=== PATIENT | female | born 1970 | race Caucasian/White ===

== ENCOUNTER → 2016-10-28 | Outpatient (CLI) | payer OTHER | END | disposition home or self-care (01) | LOC: CFH 11:23 | PROVIDERS: ATTEND Obstetrics & Gynecology | DX: Z12.31 Encounter for screening mammogram for malignant neoplasm of breast (principal) | CPT/HCPCS: G0202 ==

== ENCOUNTER → 2017-11-03 | Outpatient (CLI) | payer OTHER | END | disposition home or self-care (01) | LOC: CFH 11:11 | PROVIDERS: ATTEND Obstetrics & Gynecology | DX: Z12.31 Encounter for screening mammogram for malignant neoplasm of breast (principal) | CPT/HCPCS: 77063; 77067 ==

== ENCOUNTER → 2017-12-30 | Outpatient (CLI) | payer OTHER ==
[~2017-12-30] MED LIST: DOCU-131 PO; DOXY25TA18 PO; Juice plus PO
[2017-12-30 11:45] LABS: BASOPHILS # (AUTO) 0.05 x10^3/uL (0-0.1); BASOPHILS % (AUTO) 1 % (0-1); EOSINOPHILS # (AUTO) 0.06 x10^3/uL (0-0.4); EOSINOPHILS % (AUTO) 1 % (1-7); LYMPHOCYTES # (AUTO) 2.01 x10^3/uL (1-3.4); LYMPHOCYTES % (AUTO) 22 % (22-44); MD NO; MEAN CORPUSCULAR HEMOGLOBIN 30.6 pg (27.0-34.8); MEAN CORPUSCULAR HGB CONC 34.4 g/dL (32.4-35.8); MEAN PLATELET VOLUME 8.2 fL (7.4-10.4); MONOCYTES # (AUTO) 0.57 x10^3/uL (0.2-0.8); MONOCYTES % (AUTO) 6 % (2-9); NEUTROPHILS # (AUTO) 6.32 x10^3/uL (1.8-6.8); NEUTROPHILS % (AUTO) 70 % (42-75); PLATELET COUNT 318 x10^3/uL (130-400); RED BLOOD COUNT 4.49 x10^6/uL (3.82-5.3); RED CELL DISTRIBUTION WIDTH 14.2 % (9.6-15.2)
[2017-12-30 12:03] LABS: CULTURE INDICATED? NO; HCG UR SG 1.025 (1.003-1.030); MICROSCOPIC NOT IND
== END | disposition home or self-care (01) ==
LOC: STAR 10:43
PROVIDERS: ATTEND Obstetrics & Gynecology
DX: Z01.818 Encounter for other preprocedural examination (principal); D25.9 Leiomyoma of uterus, unspecified; N92.0 Excessive and frequent menstruation with regular cycle
CPT/HCPCS: 36415; 81003; 81025; 85025

== ENCOUNTER 2018-01-06 06:45 | Day surgery (SDC) | payer OTHER ==
[~2018-01-06] VITALS: Ht 160 cm; Wt 84.0 kg
[2018-01-06] MEDS ORDERED: LACTATED RINGERS 1,000 ML IV SCH (07:11)
[2018-01-06 07:19] LABS: HCG UR SG 1.021 (1.003-1.030)
[2018-01-06] MEDS ORDERED: GABAPENTIN 300 MG CAPSULE PO ONE (07:30)
[2018-01-06] MEDS ORDERED: ACETAMINOPHEN 500 MG TABLET PO ONE (07:30)
[2018-01-06 07:34] VITALS: BP 101/69
[2018-01-06] MEDS ORDERED: MIDAZOLAM 1 MG/ML, 2ML ONE (07:45)
[2018-01-06] MEDS ORDERED: FENTANYL PF 100 MCG/2ML ONE ×2 (07:45→09:36)
[2018-01-06] MEDS ORDERED: SILVER NITRATE STICK TP ONE (08:29)
[2018-01-06] MEDS ORDERED: BUPIVACAINE/PF-EPI 0.5% 1:200K ONE (08:29)
[2018-01-06] MEDS ORDERED: OXYcodone 5 MG/5 ML ORAL.SOL UDC PO PRN (08:30)
[2018-01-06] MEDS ORDERED: ONDANSETRON 2MG/ML, 2ML IV PRN (08:30)
[2018-01-06] MEDS ORDERED: hydrALAzine 20 MG/ML, 1ML IV PRN (08:30)
[2018-01-06] MEDS ORDERED: HYDROmorphone 1 MG/ML, 1ML IV PRN (08:30)
[2018-01-06] MEDS ORDERED: PROMETHAZINE 25 MG/ML, 1ML IV PRN (08:30)
[2018-01-06] MEDS ORDERED: LABETALOL 5MG/ML, 20ML IV PRN (08:30)
[2018-01-06] MEDS ORDERED: MEPERIDINE/PF 25MG/0.5ML IVPush PRN (08:30)
[2018-01-06] MEDS ORDERED: PROPOFOL 10 MG/ML, 20ML ONE (08:32)
[2018-01-06] MEDS ORDERED: ONDANSETRON 2MG/ML, 2ML ONE ×2 (08:33→12:38)
[2018-01-06] MEDS ORDERED: DEXAMETHASONE 4 MG/ML, 1ML ONE (08:33)
[2018-01-06] MEDS ORDERED: ROCURONIUM 10MG/ML,5ML ONE (08:37)
[2018-01-06] MEDS ORDERED: OXYcodone 5 MG/5 ML ORAL.SOL UDC ONE (09:36)
[2018-01-06] MEDS: FENTANYL PF 100 MCG/2ML IV PRN ×2 (09:41→09:57)
[2018-01-06] MEDS ORDERED: IBUPROFEN 600 MG TABLET ONE (12:09)
[2018-01-06] MEDS ORDERED: IBUPROFEN 200 MG TABLET PO ONE (12:30)
== END 2018-01-06 13:57 | disposition home or self-care (01) ==
LOC: OUT 06:45
PROVIDERS: ATTEND Obstetrics & Gynecology
DX: N92.0 Excessive and frequent menstruation with regular cycle (principal); N94.6 Dysmenorrhea, unspecified; D25.9 Leiomyoma of uterus, unspecified; G43.909 Migraine, unspecified, not intractable, without status migrainosus; Z98.890 Other specified postprocedural states; Z90.49 Acquired absence of other specified parts of digestive tract; Z72.89 Other problems related to lifestyle
CPT/HCPCS: 58563; 81025; J1100; J2250; J2405; J2704; J3010; J7120

== ENCOUNTER → 2020-02-27 | Outpatient (CLI) | payer OTHER | END | disposition home or self-care (01) | LOC: CFH 12:02 | PROVIDERS: ATTEND Obstetrics & Gynecology | DX: Z12.31 Encounter for screening mammogram for malignant neoplasm of breast (principal) | CPT/HCPCS: 77063; 77067 ==

== ENCOUNTER 2020-06-30 09:49 | Inpatient (IN) | payer OTHER ==
[~2020-06-30] VITALS: Ht 162.6 cm; Wt 87.0 kg
[2020-06-30] MEDS ORDERED: ONDANSETRON 2MG/ML, 2ML ONE (10:18)
[2020-06-30 10:25] LABS: BASOPHILS % (AUTO) 0 % (0-1); EOSINOPHILS % (AUTO) 0 % (1-7); LYMPHOCYTES % (AUTO) 11 % (22-44); MEAN CORPUSCULAR HEMOGLOBIN 30.6 pg (27.0-34.8); MEAN CORPUSCULAR HGB CONC 34.4 g/dL (32.4-35.8); MEAN PLATELET VOLUME 7.4 fL (7.4-10.4); MONOCYTES % (AUTO) 6 % (2-9); NEUTROPHILS % (AUTO) 82 % (42-75); PLATELET COUNT 284 x10^3/uL (130-400); RED BLOOD COUNT 4.48 x10^6/uL (3.82-5.3); RED CELL DISTRIBUTION WIDTH 13.5 % (9.6-15.2)
[2020-06-30] MEDS ORDERED: SODIUM CHLORIDE FLUSH 10ML SYR IVF ONE (10:30)
[2020-06-30] MEDS ORDERED: ONDANSETRON 2MG/ML, 2ML IVPush ONE (10:30)
[2020-06-30] MEDS ORDERED: MORPHINE SULFATE 4 MG/ML, 1ML IVPush PRN (10:30)
--- NOTE | 2020-06-30 10:31 | NUR ---
"I THINK I'M HAVING A DIVERTICULITIS FLARE-UP" HX OF DIVERTICULITIS. COLONOSCOPY 09/2019. C/O LLQ PAIN, FEELING BLOATED, DECREASED APPETITE. LAST BM: WEDNESDAY 06/28. TOOK NITROFUANTOIN MONO/MAC 1 CAP PO Q 12HR (YESTERDAY). TYLENOL 1000MG AT 0730. LAST ORAL INTAKE: WATER 0730, CEREAL LAST NOC 1829
--- NOTE | 2020-06-30 10:35 | NUR ---
PT AMBULATORY TO & FROM [facility] W/OUT INCIDENT; GAIT STEADY. PT STATES SHE ALSO TOOK AZO - LAST DOSE 0100 TODAY.
[2020-06-30 10:37] LABS: ALBUMIN 3.6 g/dL (3.4-5.0); ANION GAP 7 mmol/L (5-15); CALCIUM 8.9 mg/dL (8.5-10.1); CHLORIDE 108 mmol/L (98-107); CREATININE 0.75 mg/dL (0.55-1.02)
[2020-06-30 10:41] LABS: ALANINE AMINOTRANSFERASE 53 U/L (12-78); ALKALINE PHOSPHATASE 97 U/L (45-117); BILIRUBIN,TOTAL 1.2 mg/dL (0.2-1.0)
[2020-06-30 10:43] LABS: MD SCAN
[2020-06-30] MEDS ORDERED: NITR100C6 PO (10:46)
[2020-06-30] MEDS ORDERED: ERGO500018 PO (10:46)
--- NOTE | 2020-06-30 10:52 | NUR ---
PT CHOOSING TO HOLD OFF ON MORPHINE AND ZOFRAN, FOR NOW.
--- NOTE | 2020-06-30 10:57 | NUR ---
TO CT PER ANGEL
[2020-06-30] MEDS ORDERED: OMNIPAQUE 350 MG/ML, 100ML BOTTLE ONE (11:14)
[2020-06-30 11:42] LABS: MICROSCOPIC AUTO
[2020-06-30] MEDS ORDERED: CEFOTETAN PMX 1GM/50ML 50 ML IVPB ONE (12:00)
[2020-06-30] MEDS ORDERED: METRONIDAZOLE PMX 500MG/100ML 100 ML IV ONE (12:00)
--- NOTE | 2020-06-30 12:13 | NUR ---
HOSPITALIST AT . U/S TECH WAITING TO TAKE PT.
--- NOTE | 2020-06-30 12:24 | NUR ---
PT REPORT TO LIDIA PALMA FOR ROOM 361. U/S TECH AT BS
[2020-06-30] MEDS ORDERED: ONDANSETRON 2MG/ML, 2ML IVPush PRN (12:30)
[2020-06-30] MEDS ORDERED: OXYcodone IR 5MG TABLET PO PRN (12:30)
[2020-06-30] MEDS: METRONIDAZOLE PMX 500MG/100ML 100 ML IV SCH ×2 (12:30→20:24)
[2020-06-30] MEDS ORDERED: LACTATED RINGERS 1,000 ML IV SCH (12:30)
[2020-06-30] MEDS ORDERED: METRONIDAZOLE PMX 500MG/100ML 100 ML ONE (12:48)
[2020-06-30 12:52] LABS: FREE T4 (FREE THYROXINE) 1.16 ng/dL (0.76-1.46)
--- NOTE | 2020-06-30 12:53 | NUR ---
U/S PROCEDURE COMPLETED. PT AMBULATORY TO [facility] W/ STEADY GAIT
--- NOTE | 2020-06-30 13:01 | NUR ---
MAIRA KHAN. LEOLA KHAN, INFUSING AT 100ML/HR VIA DIAL A FLOW. IV SITE PATENT.
--- NOTE | 2020-06-30 13:03 | NUR ---
[employer] BS FOR PT TRANSPORT TO FLOOR. CEFOTETAN WILL BE SENT TO FLOOR W/ PT.
[2020-06-30] MEDS: ENOXAPARIN 40 MG/0.4 ML SQ SCH (13:51)
[2020-06-30] MEDS: ACETAMINOPHEN 325 MG TABLET PO PRN ×2 (13:51→20:24)
[2020-06-30 14:27] VITALS: BP 135/77
[2020-06-30 16:12] LABS: HCG UR SG 1.011 (1.003-1.030)
[2020-06-30] MEDS: CEFTRIAXONE PMX 2GM/50ML 50 ML IVPB SCH (18:38)
[2020-06-30 19:09] VITALS: BP 125/83
[2020-06-30] MEDS: DOCUSATE 100 MG CAPSULE PO SCH (20:24)
[2020-06-30] MEDS: DOXYLAMINE 25MG TABLET PO SCH (20:25)
[2020-07-01] MEDS: ACETAMINOPHEN 325 MG TABLET PO PRN (03:44)
[2020-07-01 03:45] VITALS: BP 104/67
[2020-07-01] MEDS: METRONIDAZOLE PMX 500MG/100ML 100 ML IV SCH ×3 (04:41→20:12)
[2020-07-01 05:43] LABS: BASOPHILS % (AUTO) 0 % (0-1); EOSINOPHILS % (AUTO) 1 % (1-7); LYMPHOCYTES % (AUTO) 13 % (22-44); MEAN CORPUSCULAR HEMOGLOBIN 30.6 pg (27.0-34.8); MEAN CORPUSCULAR HGB CONC 33.9 g/dL (32.4-35.8); MEAN PLATELET VOLUME 7.7 fL (7.4-10.4); MONOCYTES % (AUTO) 7 % (2-9); NEUTROPHILS % (AUTO) 80 % (42-75); PLATELET COUNT 258 x10^3/uL (130-400); RED BLOOD COUNT 4.33 x10^6/uL (3.82-5.3); RED CELL DISTRIBUTION WIDTH 13.9 % (9.6-15.2)
[2020-07-01 05:50] LABS: MD NO
[2020-07-01 05:52] LABS: ALANINE AMINOTRANSFERASE 62 U/L (12-78); ALBUMIN 3.2 g/dL (3.4-5.0); ANION GAP 8 mmol/L (5-15); CALCIUM 8.4 mg/dL (8.5-10.1); CHLORIDE 106 mmol/L (98-107)
[2020-07-01 05:55] LABS: ALKALINE PHOSPHATASE 108 U/L (45-117); BILIRUBIN,TOTAL 1.1 mg/dL (0.2-1.0); CREATININE 0.67 mg/dL (0.55-1.02); TOTAL PROTEIN 6.5 g/dL (6.4-8.2)
[2020-07-01 07:45] VITALS: BP 111/78
[2020-07-01] MEDS: ENOXAPARIN 40 MG/0.4 ML SQ SCH (13:55)
[2020-07-01 14:44] VITALS: BP 130/82
[2020-07-01] MEDS: CEFTRIAXONE PMX 2GM/50ML 50 ML IVPB SCH (18:33)
[2020-07-01 19:05] VITALS: BP 95/65
[2020-07-01 19:55] VITALS: BP 113/77
[2020-07-01] MEDS: DOCUSATE 100 MG CAPSULE PO SCH (20:12)
[2020-07-01] MEDS: DOXYLAMINE 25MG TABLET PO SCH (20:12)
[2020-07-02 00:48] VITALS: BP 102/68
[2020-07-02] MEDS: METRONIDAZOLE PMX 500MG/100ML 100 ML IV SCH (04:19)
[2020-07-02 05:25] LABS: BASOPHILS % (AUTO) 0 % (0-1); EOSINOPHILS % (AUTO) 1 % (1-7); LYMPHOCYTES % (AUTO) 23 % (22-44); MEAN CORPUSCULAR HEMOGLOBIN 30.8 pg (27.0-34.8); MEAN CORPUSCULAR HGB CONC 34.8 g/dL (32.4-35.8); MEAN PLATELET VOLUME 7.6 fL (7.4-10.4); MONOCYTES % (AUTO) 9 % (2-9); NEUTROPHILS % (AUTO) 68 % (42-75); PLATELET COUNT 255 x10^3/uL (130-400); RED BLOOD COUNT 4.15 x10^6/uL (3.82-5.3); RED CELL DISTRIBUTION WIDTH 13.7 % (9.6-15.2)
[2020-07-02 05:26] LABS: MD NO
[2020-07-02 07:41] VITALS: BP 106/73
[2020-07-02] MEDS ORDERED: METR-90 PO (08:41)
[2020-07-02] MEDS ORDERED: CIPR250T27 PO (08:48)
[2020-07-02] MEDS ORDERED: FLUC150T2 PO (08:49)
== END 2020-07-02 11:05 | disposition home or self-care (01) | DRG 392 ==
LOC: ED 10:23 → EDIP 11:48 → 3N 13:02 → DCLOUNGE 07-02 10:48
PROVIDERS: ADMIT Hospitalist; ATTEND Family Medicine
DX: K57.20 Diverticulitis of large intestine with perforation and abscess without bleeding (principal); E87.2 Acidosis; N39.0 Urinary tract infection, site not specified; D25.9 Leiomyoma of uterus, unspecified; N83.201 Unspecified ovarian cyst, right side; G43.909 Migraine, unspecified, not intractable, without status migrainosus; R16.1 Splenomegaly, not elsewhere classified; R19.00 Intra-abdominal and pelvic swelling, mass and lump, unspecified site; R30.0 Dysuria; Z80.9 Family history of malignant neoplasm, unspecified; Z90.49 Acquired absence of other specified parts of digestive tract
CPT/HCPCS: 36415; 74177; 76830; 80053; 81001; 81025; 83605; 83690; 84439; 84443; 85025; 87040; 87086; G0378; J0696; J1650; J2405; Q9967; J7120

== ENCOUNTER 2020-09-10 10:19 | Emergency (ER) | payer OTHER ==
[~2020-09-10] VITALS: Ht 162.6 cm; Wt 97.0 kg
[~2020-09-10 10:19] MED LIST changes: +CIPR250T27 PO; +ERGO1250 PO; +FLUC150T2 PO; +METR-90 PO; +NITR100C6 PO
[2020-09-10 10:34] VITALS: BP 130/86
[2020-09-10 11:01] LABS: MICROSCOPIC INDICATED
--- NOTE | 2020-09-10 13:21 | NUR ---
KEY PUNCH OPERATOR: ATTEMPT TO ROOM PT, NOT IN LOBBY AT THIS TIME.
--- NOTE | 2020-09-10 13:54 | NUR ---
MATERIAL DAMAGE ADJUSTER: ATTEMPT TO ROOM PT, NOT IN LOBBY AT THIS TIME.
--- NOTE | 2020-09-10 13:58 | NUR ---
MORTGAGE OPERATIONS MANAGER: ATTEMPT TO ROOM PT, NOT IN LOBBY AT THIS TIME
== END 2020-09-10 14:01 | disposition left against medical advice (07) ==
LOC: ED 13:55
DX: R68.89 Other general symptoms and signs (principal); Z53.21 Procedure and treatment not carried out due to patient leaving prior to being seen by health care provider
CPT/HCPCS: 81001; 87077; 87086; 87186